=== PATIENT | female | born 1950 | race Hispanic/Latino ===

== ENCOUNTER 2017-03-01 11:13 | Emergency (ER) | payer MEDICARE ==
[2017-03-01 11:47] VITALS: TEMP 97.8; BMI 27.4
[2017-03-01] MEDS ORDERED: Sodium Chloride 0.9% 1,000 ML IV ONE ×2 (11:48→17:19)
--- NOTE | 2017-03-01 11:49 | C.PDOC ---
History Of Present Illness 67 yr old female with PMHx of COPD and HTN, brought in via BLS, presents to the ER for evaluation of lower back pain gradually worsening for the past 1 week. Patient reports history of frequent falls and last fall was 1 week ago which aggravated the back pain. Patient states the pain is dull, constant and localized. On triage patient is noted to be drowsy and wheezing, patient admits to be a smoker. Patient denies fever, chill, chest pain, SOB, LOC, nausea, vomiting, abdominal pain, dysuria, incontinence, weakness or numbness. Time Seen by Provider: 03/01/17 11:23 Chief Complaint (Nursing): Back Pain History Per: Patient History/Exam Limitations: no limitations Onset/Duration Of Symptoms: Days (1 week) Past Medical History Reviewed: Historical Data, Nursing Documentation, Vital Signs Vital Signs: Last Vital Signs Temp 97.8 F 03/01/17 11:38 Pulse 103 H 03/01/17 13:59 Resp 20 03/01/17 13:59 BP 126/74 03/01/17 13:59 Pulse Ox 87 L 03/01/17 19:10 - Medical History PMH: Anxiety, Arthritis, Bipolar Disorder, Bronchitis, COPD, Depression, Diabetes, Gall Bladder Disease, HTN, Hypercholesterolemia, Hypothyroidism, Parkinson's Disease Surgical History: Cholecystectomy - [facility] Procedures INDIVID PSYCHOTHERAP NEC (05/30/14) OTHER GROUP THERAPY (05/30/14) Family History: States: No Known Family Hx - Social History Hx Alcohol Use: Yes Hx Substance Use: No - Immunization History Hx Tetanus Toxoid Vaccination: No Hx Influenza Vaccination: Yes Hx Pneumococcal Vaccination: No Review Of Systems Except As Marked, All Systems Reviewed And Found Negative. Constitutional: Negative for: Fever, Chills Cardiovascular: Negative for: Chest Pain Respiratory: Negative for: Shortness of Breath Gastrointestinal: Negative for: Nausea, Vomiting, Abdominal Pain Genitourinary: Negative for: Dysuria, Incontinence Musculoskeletal: Positive for: Back Pain (Lower) Neurological: Negative for: Weakness, Numbness Physical Exam - Physical Exam Appears: Other ((+) Appears drowsy) Skin: Warm, Dry, No Rash Head: Normacephalic Eye(s): bilateral: PERRL Nose: No Flaring, No Discharge Oral Mucosa: Moist, No Drooling Throat: No Drooling Neck: Supple Cardiovascular: Rhythm Regular (tachy), No Murmur, No JVD, Other ((-) carotid bruits) Respiratory: No Decreased Breath Sounds, No Accessory Muscle Use, No Rales, No Rhonchi, No Stridor, Wheezing (Diffuse bilateral wheezing, BS equal B/L.) Back: No CVA Tenderness Extremity: Normal ROM, No Pedal Edema, No Swelling Neurological/Psych: Oriented x3, Normal Speech, Normal Motor, Normal Sensation, Normal Reflexes ED Course And Treatment - Laboratory Results Result Diagrams: 03/01/17 12:38 03/01/17 12:38 Lab Interpretation: Abnormal ECG: Interpreted By Me, Viewed By Me Interpretation Of ECG: Sinus tachy@104/min,NAD, no acute T wave or ST-T changes. O2 Sat by Pulse Oximetry: 87 Pulse Ox Interpretation: Abnormal - Other Rad CXR X-Ray: Viewed By Me, Read By Radiologist Interpretation: HISTORY: chest pain. COMPARISON: Comparison is made to 2015. TECHNIQUE: Chest PA and lateral. FINDINGS: LUNGS: No significant interval change in the lungs noted since the previous exam. Prominent right hilum is again noted. Small linear opacities at the right lung base is again noted likely atelectasis or scar tissue P. PLEURA: No significant pleural effusion identified. No pneumothorax apparent. CARDIOVASCULAR: Normal. OSSEOUS STRUCTURES: No significant abnormalities. VISUALIZED UPPER ABDOMEN: Normal. OTHER FINDINGS: None. IMPRESSION: No significant interval change when compared to the previous exam. - CT Scan/US CT - Lumbar Spine Other Rad Studies (CT/US): Read By Radiologist, Radiology Report Reviewed CT/US Interpretation: IMPRESSION: Chronic anterior wedge compression fracture T12 segment with retropulsion of the posterior cortex resulting in significant canal stenosis and compression of the thecal sac. Re- demonstrated is a chronic appearing Schmorl's nodes mid and left parasagittal L2 endplate. See above discussion for additional details and findings. Multilevel degenerative spondylosis on most notably affecting the L five S1 and L4-L5 levels as detailed above. CT - Angio Chest Other Rad Studies (CT/US): Read By Radiologist, Radiology Report Reviewed CT/US Interpretation: ROCEDURE: CT Chest with contrast (Pulmonary Angiogram). HISTORY: SOB, high DDimer. COMPARISON: None available. TECHNIQUE: Axial computed tomography images were obtained of the chest in the pulmonary arterial phase of enhancement. Coronal and sagittal reformatted images were created and reviewed. Intravenous contrast dose: 100 mL of Visipaque 320. Radiation dose: Total exam DLP = 311.4 mGy-cm. This CT exam was performed using one or more of the following dose reduction techniques: Automated exposure control, adjustment of the mA and/or kV according to patient size, and/or use of iterative reconstruction technique. FINDINGS: PULMONARY ARTERIES: Unremarkable. No pulmonary embolism. AORTA: No acute findings. No thoracic aortic aneurysm. LUNGS: Moderate to severe emphysematous changes predominant in the upper lobes are noted. Patchy ground-glass opacities are noted. PLEURAL SPACES: Unremarkable. No effusion or pneuomothorax. HEART: The heart is mildly enlarged. No evidence of pericardial effusion. LYMPH NODES: No lymphadenopathy. BONES, CHEST WALL: Unremarkable. No fracture or destructive lesion. OTHER FINDINGS: Pulmonary artery is mildly to moderately enlarged suggestive of pulmonary hypertension. IMPRESSION: No evidence of pulmonary embolus. Moderate to severe emphysematous changes predominant in the upper lobes. Nonspecific patchy ground-glass opacities more prominent at the right lower lobe. Mild cardiomegaly. Bznuop-fy-[id number] enlarged main pulmonary artery suggestive of pulmonary hypertension. Severe compression deformity of T11 vertebral body likely old. Progress Note: At 17:10, results were review and discussed with pt. Pt admits, remained unchanged, still c/o lower back pain, appears sick. Pt was offered admission to hospital with Dx: COPD exacerbation, hypoxia, intractable back pain , dehydration and pt agrees. At 17:29, pt sts, " I dont want to stay, want to go to smoke" and wish to leave hospital. Pt was offered nicotine patch. Pt was explained risk of leaving AMA. Pt appears at full mental capacity to make legal decision, agrees with possible complication including sudden , still wish to leave hospital and F/u with PMD. Pt refused ordered further tx. Against Medical Advice - AMA Patient Left Against Medical Advice: The patient declines admission to the hospital and wishes to leave the Emergency Department. This action is against my medical advice. This decision was made with informed refusal. The patient was told that admission to the hospital is necessary. Explanation of the reasons why were discussed. The risks of leaving were explained to the patient and include, but are not limited to, worsening of known or currently unknown conditions, permanent disability and from undiagnosed or untreated conditions. The patient has the capacity to make this informed decision and understands my explanation of the current medical problem and risks of leaving. The patient voluntarily accepts these risks and signed an AMA form documenting our conversation. The patient was given the opportunity to ask questions and reconsider. The patient was encouraged to return to the Emergency Department at any time for further care. Critical Care Time - Critical Care Note Total Time (in mins): 40 Comments: HYpoxia, drowsy Documented critical care: time excludes all time spent performing seperately billable procedures. Medical Decision Making Medical Decision Making: PLAN: * CT - Lumbar Spine * CT - Angio Chest * CXR * EKG * Drug Screen * Troponin * D-Dimer * CBC * CMP * Urinalysis * Albuterol IH * Solumedrol IVP * Sodium Chloride IV Disposition - Disposition Disposition: AGAINST MEDICAL ADVICE Disposition Time: 17:30 Condition: STABLE - Clinical Impression Clinical Impression: COPD exacerbation, Intractable back pain, Dehydration - PA / SUPPLY CLERK / Resident Statement MD/DO has reviewed & agrees with the documentation as recorded. - Scribe Statement The provider has reviewed the documentation as recorded by the Scribe Yael Borjas All medical record entries made by the Leahiballyson were at my direction and personally dictated by me. I have reviewed the chart and agree that the record accurately reflects my personal performance of the history, physical exam, medical decision making, and the department course for this patient. I have also personally directed, reviewed, and agree with the discharge instructions and disposition.
[2017-03-01] MEDS ORDERED: Albuterol-Ipratrop 3 mg / 0.5 (3 ml) UD IH STA ×3 (11:50→17:26)
[2017-03-01] MEDS ORDERED: Sodium Chloride 0.9% 1,000 ML ONE (12:25)
[2017-03-01] MEDS ORDERED: Albuterol-Ipratrop 3 mg / 0.5 (3 ml) UD ONE ×2 (12:25→12:35)
--- NOTE | 2017-03-01 12:35 | RAD ---
HISTORY: chest pain COMPARISON: Comparison is made to 02/28/2016 TECHNIQUE: Chest PA and lateral FINDINGS: LUNGS: No significant interval change in the lungs noted since the previous exam. Prominent right hilum is again noted. Small linear opacities at the right lung base is again noted likely atelectasis or scar tissue P PLEURA: No significant pleural effusion identified. No pneumothorax apparent. CARDIOVASCULAR: Normal. OSSEOUS STRUCTURES: No significant abnormalities. VISUALIZED UPPER ABDOMEN: Normal. OTHER FINDINGS: None. IMPRESSION: No significant interval change when compared to the previous exam.
[2017-03-01 12:45] VITALS: RESP 20
[2017-03-01 12:47] LABS: BASO % 0.6 % (0.0-2.0); EOS # 0.1 K/uL (0.0-0.7); HEMATOCRIT 50.4 % (34.0-47.0); LYMPH # 0.8 K/uL (1.0-4.3); LYMPH % 14.7 % (20.0-40.0); MEAN CELL VOLUME 93.1 fL (81.0-99.0); MEAN CORPUSCULAR HEMOGLOBIN 32.3 pg (27.0-31.0); MEAN CORPUSCULAR HGB CONC 34.7 g/dL (33.0-37.0); MEAN PLATELET VOLUME 8.3 fL (7.2-11.7); MONO # 0.5 K/uL (0.0-0.8); MONO % 9.2 % (0.0-10.0); NRBC % 0.1 % (0.0-2.0); RED CELL DISTRIBUTION WIDTH 16.5 % (11.5-14.5); WHITE BLOOD COUNT 5.6 K/uL (4.8-10.8)
[2017-03-01 12:51] LABS: CHLORIDE 92 mmol/L (98-107); SODIUM 132 mmol/L (132-148)
[2017-03-01 12:53] LABS: AST/SGOT 28 U/L (14-36); BILIRUBIN,TOTAL 0.9 mg/dL (0.2-1.3); CARBON DIOXIDE 25 mmol/L (22-30); GFR AFRICAN-AMERICAN > 60
[2017-03-01 12:54] LABS: ALB/GLOB RATIO 1.4 (1.0-2.1); ALKALINE PHOSPHATASE 123 U/L (38-126); ALT/SGPT 32 U/L (9-52); BLOOD UREA NITROGEN 18 mg/dL (7-17); CALCIUM 9.4 mg/dl (8.6-10.4); GLUCOSE,RANDOM 111 mg/dL (65-105); TOTAL PROTEIN 7.9 g/dL (6.3-8.3)
[2017-03-01 13:01] LABS: INR 0.9
[2017-03-01 14:00] VITALS: BP 126/74; PULSE 103
--- NOTE | 2017-03-01 14:00 | CT ---
PROCEDURE: CT scan lumbar spine dated 03/01/2017 HISTORY: Pain COMPARISON: No prior study available for comparison however correlation made with prior CT scan abdomen pelvis 09/07/2014 which image the lumbar spine in 3 planes. TECHNIQUE: Axial computed tomography images were obtained of the lumbar spine without the use of intravenous contrast. Coronal and sagittal reformatted images were created and reviewed. Radiation dose: Total exam DLP = 566.1 mGy-cm. This CT exam was performed using one or more of the following dose reduction techniques: Automated exposure control, adjustment of the mA and/or kV according to patient size, and/or use of iterative reconstruction technique. FINDINGS: VERTEBRAE: Re- demonstrated is a chronic anterior wedge compression fracture of the T12 segment with retropulsion of the posterior cortex that does result in significant canal stenosis and compression of the thecal sac/ intrathecal nerve roots of the cauda equina on more so on the left side. Bilateral foraminal stenosis particularly significant at the T11-T12 level. . There is an acute kyphotic angulation deformity centered at this level. The remaining vertebral bodies otherwise exhibit normal stature. Vertebral bodies and facets are otherwise normally aligned. DISCS/SPINAL CANAL/NEURAL FORAMINA: Multilevel degenerative spondylosis of the lumbar spine. . At the L5 S1 level, there is disc space narrowing more so along the posterior disc margin with vacuum disc phenomena. Small broad-based disc herniation results in compressive effects on the ventral surface of the thecal sac of. The facets at this level also hypertrophic. Central canal appears adequate despite the at aforementioned disc and facet joint changes. The exit foramina appear narrowed bilaterally. At the L4-L5 level, there is mid minor posterior disc space narrowing. Small broad-based bulge of the posterior annulus flattens the ventral surface of the thecal sac however the overall central canal is also adequate. Facets are hypertrophic. The exit foramina are adequate despite encroaching disc and facet joint changes. At the L3-L4 level, there is also minor posterior disc space narrowing with small broad-based bulge of the posterior annulus. Facets mildly hypertrophic. Central canal and exit foramina are adequate. Re- demonstrated is a chronic appearing mid and left parasagittal endplate deformity superior L2 segment likely representing chronic Schmorl's node. At there is also asymmetric broad-based disc bulge At the L2-L3 level larger on the left than the right which results in compressive effects along the anterolateral border of the thecal sac more so on the left side. Facets also mildly hypertrophic. Exit foramina are adequate. PARASPINAL SOFT TISSUES: Unremarkable. OTHER FINDINGS: Incidental note is made of wall thickening of the urinary bladder which may be in part due to incomplete distention however the possibility of a cystitis not excluded. Apparent hysterectomy. Clinical correlation recommended Also again noted is a hypodense elliptical shaped right adrenal mass. Enlarged left adrenal gland. IMPRESSION: Chronic anterior wedge compression fracture T12 segment with retropulsion of the posterior cortex resulting in significant canal stenosis and compression of the thecal sac. Re- demonstrated is a chronic appearing Schmorl's nodes mid and left parasagittal L2 endplate. See above discussion for additional details and findings Multilevel degenerative spondylosis on most notably affecting the L five S1 and L4-L5 levels as detailed above.
[2017-03-01 15:53] VITALS: O2SAT 87
[2017-03-01 16:06] LABS: URINE BILIRUBIN NEGATIVE (NEGATIVE); URINE BLOOD NEGATIVE (NEGATIVE); URINE COLOR Yellow (YELLOW); URINE GLUCOSE (UA) NORMAL (Normal); URINE KETONE TRACE mg/dL (NEGATIVE); URINE LEUKOCYTE ESTERASE NEG Leu/uL (Negative); URINE PROTEIN NEGATIVE (NEGATIVE); URINE UROBILINOGEN NORMAL mg/dL (0.2-1.0)
[2017-03-01] MEDS ORDERED: Iodixanol 320 MG/ML 100 ML BOTTLE IV ONE (16:15)
--- NOTE | 2017-03-01 17:03 | CT ---
PROCEDURE: CT Chest with contrast (Pulmonary Angiogram) HISTORY: SOB, high DDimer COMPARISON: None available. TECHNIQUE: Axial computed tomography images were obtained of the chest in the pulmonary arterial phase of enhancement. Coronal and sagittal reformatted images were created and reviewed. Intravenous contrast dose: 100 mL of Visipaque 320 Radiation dose: Total exam DLP = 311.4 mGy-cm. This CT exam was performed using one or more of the following dose reduction techniques: Automated exposure control, adjustment of the mA and/or kV according to patient size, and/or use of iterative reconstruction technique. FINDINGS: PULMONARY ARTERIES: Unremarkable. No pulmonary embolism. AORTA: No acute findings. No thoracic aortic aneurysm. LUNGS: Moderate to severe emphysematous changes predominant in the upper lobes are noted. Patchy ground-glass opacities are noted. PLEURAL SPACES: Unremarkable. No effusion or pneuomothorax. HEART: The heart is mildly enlarged. No evidence of pericardial effusion. LYMPH NODES: No lymphadenopathy. BONES, CHEST WALL: Unremarkable. No fracture or destructive lesion OTHER FINDINGS: Pulmonary artery is mildly to moderately enlarged suggestive of pulmonary hypertension. IMPRESSION: No evidence of pulmonary embolus. Moderate to severe emphysematous changes predominant in the upper lobes. Nonspecific patchy ground-glass opacities more prominent at the right lower lobe. Mild cardiomegaly. Isicik-ur-xmvlwgigrh enlarged main pulmonary artery suggestive of pulmonary hypertension. Severe compression deformity of T11 vertebral body likely old.
[2017-03-01] MEDS ORDERED: Azithromycin 500 MG in Sodium Chloride 0.9% 250 ML IVPB STA (17:29)
--- NOTE | 2017-03-05 22:15 | CARD ---
APPROVED REPORT EKG Measurement Heart [id number] <Conclusion> Sinus tachycardia Possible Left atrial enlargement Nonspecific ST abnormality Abnormal ECG
== END 2017-03-01 19:00 | disposition left against medical advice (07) ==
LOC: C.ER 11:13 → UNDOADMIN 17:01 → C.9E 17:01 → C.ER 19:00 → UNDODISIN 19:00
DX: J44.1 Chronic obstructive pulmonary disease with (acute) exacerbation (principal); M54.9 Dorsalgia, unspecified; E86.0 Dehydration; F17.210 Nicotine dependence, cigarettes, uncomplicated; I10 Essential (primary) hypertension; E11.9 Type 2 diabetes mellitus without complications; E78.00 Pure hypercholesterolemia, unspecified; G20 Parkinson's disease
CPT/HCPCS: 71020; 71275; 72131; 80053; 80324; 80345; 80346; 80349; 80353; 80358; 80361; 81001; 82550; 83880; 83992; 84484; 85025; 85378; 85610; 85730; 93005; 94640; 96361; 96374; 99285; J2930; J7040; Q9967